=== PATIENT | male | born 1995 | race Caucasian/White ===

== ENCOUNTER 2016-07-20 10:26 | Emergency (ER) | payer OTHER ==
[2016-07-20] MEDS ORDERED: DIPHTH,PERTUSS(ACELL),TET VAC 0.5 ML VIAL IM ONE ×2 (13:21→13:39)
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
[2016-07-20 13:46] VITALS: BP 135/76
--- NOTE | 2016-07-20 13:48 | ERNOTE ---
Medical Problem HPI - Narrative Date of Service: 07/20/16 - General Chief Complaint: Laceration Time Seen by Provider: 07/20/16 13:06 Source: patient Exam Limitations: no limitations - Immun/Allergies/Home Medications Immunizations: IMMUNIZATION HX Immunizations Up to Date Yes History of Influenza Vaccine No Allergies/Adverse Reactions: Allergies No Known Allergies Allergy (Verified 07/20/16 10:46) Home Medications: HOME MEDICATIONS NK [No Home Medication] 07/20/16 [Last Taken Unknown] - History of Present History Narrative: 21 year old male presenting to the ED for a forearm laceration he acquired at work. patient states that he was moving 18G steel sheet when it slipped and hit him in the arm. Patient had steristrips to the wound upon entering the room. Date (Duration): 07/20/16 Timing: intermittent Severity: mild Modifying Factors - (Improves): Present: rest Modifying Factors - (Worsens): Present: movement Review of Systems - Review of Systems Constitutional: Present: no symptoms reported EYE: Present: no symptoms reported ENT: Present: no symptoms reported Respiratory: Present: no symptoms reported Cardiology: Present: no symptoms reported Gastrointestinal/Abdominal: Present: no symptoms reported Genitourinary: Present: no symptoms reported Musculoskeletal: Present: no symptoms reported Skin: Present: See HPI Neurological: Present: no symptoms reported Endocrine: Present: no symptoms reported Hematologic/Lymphatic: Present: no symptoms reported Psych: Present: no symptoms reported All Other Systems: All systems neg except as marked - Patient's Past Medical History Patient History - Medical: No pertinent hx Patient History - Cardiac/Respiratory: No pertinent hx Patient History - Surgical Procedures: Other - Social History Living Situations: home Psych History: No pertinent hx Smoking Status: Never smoker Do you dip or chew tobacco: Yes - occasionally Alcohol Use: none Drug Use: none - Immunizations Immunizations Up to Date: Yes History of Influenza Vaccine: No Physical Exam - Physical Exam Narrative: 2cm laceration observed to patients right FA. Wound site is clean and not bleeding with clean edges and wound goes down at angle distally. General Appearance: Present: wd/wn, alert, no apparent distress Eye Exam: Normal inspection: bilateral Ears, Nose, Throat: Present: normal ENT inspection Neck: Present: normal inspection Respiratory: Present: no respiratory distress, normal breath sounds Cardiovascular/Chest: Present: regular rate, rhythm, no murmur, normal peripheral pulses Peripheral Pulses: N=norm/S=strong/W=weak/B=bound/A=absent: Radial (R): Normal, Radial (L): Normal Gastrointestinal/Abdominal: Present: normal bowel sounds Extremity Exam: Present: normal except - - laceration. cap refill brisk, both radial and ulnar pulses felt easily. Neurological Exam: Present: alert, oriented, normal mood/affect Skin Exam: Present: warm/dry ED Progress - Vital Signs Vital Signs: Vital Signs 07/20/16 10:40 Temperature 37.3 C Pulse Rate 87 Respiratory 14 Rate Blood Pressure 145/71 O2 Sat by Pulse 99 Oximetry - Progress/Reassessment Chief Complaint: Laceration Procedures Right Lower Medial Distal Arm I & D Prep: betadine prep Length of Repair/Wound (cm): 2 Wound's Depth/Shape: into subcutaneous Wound Explored: clean, no foreign body Wound Intervention: irrigated w/saline Distal NVT: neuro/vasc intact, no tendon injury Wound Repaired With: Dermabond Complications: Pt paulino procedure well Departure - Departure Clinical Impression: Laceration Disposition: Home self-care Condition: Stable Instructions: VIS, Tetanus, Diphtheria (Td); Tetanus, Diphtheria, Pertussis ( Tdap) - CDC, Tissue Adhesive Wound Care, Laceration Care, Adult, [id number] Additional Instructions: Continue any previous home medications or taking. He may take over-the- counter pain medicines for pain. Return to the emergency room if any new symptoms arise or he develop any signs and symptoms of infection that we had discussed previously. He may follow up with your primary care doctor in the next 2-3 days. Referrals: Trinidad Fink APN [Primary Care Provider] -
== END 2016-07-20 13:53 | disposition home or self-care (01) ==
LOC: ER 10:26
PROC: 0JQG0ZZ Repair Right Lower Arm Subcutaneous Tissue and Fascia, Open Approach (ICD-10-PCS; principal; 2016-07-20)
DX: S51.811A Laceration without foreign body of right forearm, initial encounter (principal); Z23 Encounter for immunization; W45.8XXA Other foreign body or object entering through skin, initial encounter; W22.8XXA Striking against or struck by other objects, initial encounter; Y92.69 Other specified industrial and construction area as the place of occurrence of the external cause; Y99.0 Civilian activity done for income or pay